=== PATIENT | male | born 1975 | race African-American/Black ===

== ENCOUNTER 2020-03-16 07:03 | Emergency (ER) | payer OTHER ==
[~2020-03-16] VITALS: Ht 165.1 cm; Wt 97.5 kg
--- NOTE | 2020-03-16 07:05 | NUR ---
pt c/c right5 ear pain 4 days
[2020-03-16 07:20] VITALS: BP 155/98
--- NOTE | 2020-03-16 07:29 | ER.PDOC ---
General Chief Complaint: Earache Stated Complaint: RIGHT EAR PAIN Time seen by MD: 07:33 Source: patient Exam Limitations: no limitations History of Present Illness Timing/Duration: gradual Severity: mild Location of Pain: (R) Ear Associated Symptoms: dull earache Past Medical History Medical History: hypertension Surgical History: no surgical history Social History Alcohol Use: none Drug Use: none Reviewed Nursing Reviewed: Vital Signs, Abn. Noted All Other Systems: Reviewed and Negative Physical Exam General Appearance: alert, no distress Ears: auricle, external. canal nml, (R) canal swelling TM's: nml 1 - pustule Mouth/Throat: lips/gums nml, pharynx nml Nose: nml inspection Head/Neck: atraumatic, neck nml inspection Eyes: eyes nml inspection, PERRL, no nystagmus Resp/CVS: no resp distress, lungs clear, heart sounds nml, reg. rate & rhythm Abdomen: non-tender, no organomegaly Skin Exam: Normal Color, Warm/Dry NEURO/PSYCH: oriented X3, mood/effect nml Results/Orders Results/Orders Vital Signs Date Time Temp Pulse Resp B/P (MAP) Pulse Ox O2 Delivery O2 Flow Rate FiO2 03/16/20 07:20 99.1 80 20 97 03/16/20 07:20 99.1 80 20 97 ER DEPART Departure Time of Disposition: 07:33 Disposition: 01 HOME, SELF-CARE Impression: Primary Impression: Otitis externa Condition: Stable Referrals: PCP,UNKNOWN (PCP) PRIMARY CARE PROVIDER Duration or Time Spent with Pa: 11m MAUREEN SANTOS MD Mar 16, 2020 07:29
== END 2020-03-16 07:25 | disposition home or self-care (01) ==
LOC: ER 07:03
DX: H60.91 Unspecified otitis externa, right ear (principal); I10 Essential (primary) hypertension
CPT/HCPCS: 99283

== ENCOUNTER 2020-03-17 00:41 | Emergency (ER) | payer OTHER ==
[~2020-03-17] VITALS: Ht 167.6 cm; Wt 97.5 kg
[2020-03-17 01:00] VITALS: BP 150/93
--- NOTE | 2020-03-17 01:00 | NUR ---
ARRIVAL PT REPORTING PAIN AND DRAINAGE TO RIGHT EAR. RECENTLY SEEN YESTERDAY. PRESCRIBED CIPRODEX OTIC. PT REPROTING WORSENING OF PAIN TO OUTER EAR. PT AMBULATORY TO ROOM 3 WITH STEADY GAIT. PT IN NAD WITH RR EVEN AND UNLABORED. PT REPORTING PREAURICULATR AND POSTAURICULAR PAIN. REDNESS NOTED TO RIGHT EAR.
[2020-03-17] MEDS ORDERED: ROCEPHIN IM STA (01:13)
[2020-03-17] MEDS ORDERED: LIDOCAINE 1% VIAL ONE (01:19)
[2020-03-17] MEDS ORDERED: ROCEPHIN ONE (01:19)
--- NOTE | 2020-03-17 01:20 | ER.PDOC ---
General Chief Complaint: Requesting Medical Care Stated Complaint: R EAR DRAINAGE Time seen by MD: 01:14 Source: patient Exam Limitations: no limitations History of Present Illness Initial Comments Right ear draining for 4 days. No fever or chills. Patient seen here yesterday and was prescribed Ciprodex ear drops. He declined oral antibiotics and returned requesting for it. Timing/Duration: gradual Severity: moderate Location of Pain: (R) Ear Associated Symptoms: discharge Past Medical History Medical History: hypertension Surgical History: no surgical history Family History Significant Family History: no pertinent family hx Social History Smoking: non-smoker Drug Use: none Constitutional: no symptoms reported Ears: see HPI Throat: no symptoms reported Respiratory: no symptoms reported Cardiovascular: no symptoms reported Gastrointestinal: no symptoms reported Musculoskeletal: no symptoms reported All Other Systems: Reviewed and Negative Physical Exam General Appearance: alert, no distress Ears: auricle, (R) canal swelling TM's: erythema (R( (with drainage from right ear.) Mouth/Throat: lips/gums nml, pharynx nml Nose: nml inspection Head/Neck: atraumatic, neck nml inspection Resp/CVS: no resp distress, lungs clear, heart sounds nml, reg. rate & rhythm Abdomen: non-tender, no organomegaly Skin Exam: Normal Color, Warm/Dry NEURO/PSYCH: oriented X3, mood/effect nml Results/Orders Results/Orders Orders - LUCIANA BELTRE MD Ceftriaxone Sodium (Rocephin) (03/17/20 01:13) ER DEPART Departure Time of Disposition: 01:18 Disposition: 01 HOME, SELF-CARE Impression: Primary Impression: Otitis media Qualified Codes: H66.011 - Acute suppurative otitis media with spontaneous rupture of ear drum, right ear Additional Impression: Otitis externa Qualified Codes: H60.501 - Unspecified acute noninfective otitis externa, right ear Condition: Stable Referrals: PCP,UNKNOWN (PCP) PRIMARY CARE PROVIDER Additional Instructions: Augmentin Continue Ciprodex Ibuprofen F/U with your PCP in 2-3 days Return to ED if worsening or concerns Duration or Time Spent with Pa: 10 min LUCIANA BELTRE MD Mar 17, 2020 01:20
== END 2020-03-17 01:30 | disposition home or self-care (01) ==
LOC: ER 00:41
DX: H60.501 Unspecified acute noninfective otitis externa, right ear (principal); I10 Essential (primary) hypertension
CPT/HCPCS: 96372; 99283; J0696; J2001